=== PATIENT | male | born 1965 | race Caucasian/White ===

== ENCOUNTER 2022-10-01 07:04 | Day surgery (SDC) | payer BC ==
[~2022-10-01 07:04] MED LIST: ALEVE220 M1 PO; CHLORTHALIDONE25 MG PO; CLARITIN5 MG/5 ML PO; COQ10100 MG PO; LISINOPRIL40 MG PO; METOPROLOL100 M1 PO; MOVE FREE ULTRA PO; NORVASC5 M1 PO; PRESERVISION AREDS 2 PO; PROBIOTI2 PO; ROSUVASTATIN CA20 MG PO; VITAMIN C500 M4 PO
[2022-10-01 08:38] VITALS: BP 122/70
== END 2022-10-01 09:07 | disposition home or self-care (01) | DRG 951 ==
LOC: ENDO 07:04
PROVIDERS: ATTEND Surgery
PROC: 0DJD8ZZ Inspection of Lower Intestinal Tract, Via Natural or Artificial Opening Endoscopic (ICD-10-PCS; principal; 2022-10-01)
DX: Z12.11 Encounter for screening for malignant neoplasm of colon (principal); K64.8 Other hemorrhoids; I10 Essential (primary) hypertension